=== PATIENT | female | born 2000 | race African-American/Black ===

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

== ENCOUNTER 2018-12-02 21:17 | Emergency (ER) | payer BC ==
[~2018-12-02] VITALS: Ht 162.6 cm; Wt 46.7 kg
--- NOTE | 2018-12-02 21:55 | NUR ---
BIB MOTHER FROM HOME. AAOX4. CRYING. NO SOB, BREATHING EVEN AND UNLABORED. AMBULATORY. C/O NAUSEA AND VOMITNG SINCE THIS MORNING. CANT HOLD FOOD OR FLUID DOWN. PT ALSO REPORTS DIARRHEA. SHE IS ALSO ON HER MENSTRATION. PT ALSO COMPLAINS OF GEN ABDOMINAL PAIN 10/10, CRAMPING, ACHING AND SHARP. TO ER BED 11. AT BEDSIDE
[2018-12-02] MEDS ORDERED: ONDANSETRON HCL/PF 4 MG/2 ML VIAL ONE (21:58)
[2018-12-02] MEDS ORDERED: KETOROLAC TROMETHAMINE INJ 60 MG/2 ML VIAL IM ONE (21:58)
[2018-12-02] MEDS ORDERED: IV NS 0.9% 1,000 ML BAG IV ONE (22:00)
[2018-12-02] MEDS ORDERED: KETOROLAC TROMETHAMINE INJ 30 MG/ML VIAL IV ONE (22:00)
[2018-12-02] MEDS ORDERED: ONDANSETRON HCL/PF 4 MG/2 ML VIAL IVP ONE (22:00)
--- NOTE | 2018-12-02 22:00 | NUR ---
IV STARTED ON R AC 20G. BLOOD DRAWN AND GIVEN TO MEMORIAL COUNSELOR AT BEDSIDE
[2018-12-02 22:01] LABS: BASOPHILS % (AUTO) 0.3 % (0.0-2.0); EOSINOPHILS % (AUTO) 0.2 % (0.0-6.0); HEMATOCRIT 39 % (33-45); HEMOGLOBIN 12.6 g/dL (11.5-14.8); LYMPHOCYTES % (AUTO) 14.1 % (20.0-44.0); MEAN CORPUSCULAR HGB CONC 32 g/dl (31.0-36.0); MEAN CORPUSCULAR VOLUME 82 fL (82-100); MONOCYTES % (AUTO) 5.7 % (2.0-12.0); NEUTROPHILS % (AUTO) 79.7 % (43.0-81.0); PLATELET COUNT (AUTO) 201 /CMM (150-450); RED BLOOD CELL COUNT(AUTO) 4.73 MIL/uL (4.0-5.2); WHITE BLOOD COUNT (AUTO) 7.2 K/uL (4.3-11.0)
[2018-12-02 22:02] LABS: MONOCYTES # (AUTO) 0.4 /CMM (0.1-1.30); NEUTROPHILS # (AUTO) 5.8 /CMM (1.8-8.9)
--- NOTE | 2018-12-02 22:17 | NUR ---
URINE COLLECTED AND SENT TO LAB
[2018-12-02 22:21] LABS: APPEARANCE,URINE Clear (CLEAR); BILIRUBIN,URINE SMALL (NEGATIVE); BLOOD, URINE Large Ery/uL (NEGATIVE); COLOR,URINE Yellow (YELLOW); KETONES,URINE 80 (NEGATIVE); LEUKOCYTE ESTERASE ,URINE Trace (NEGATIVE); NITRITE, URINE Negative (NEGATIVE); PROTEIN,URINE 30 mg/dl (NEGATIVE); UGLUCOSE Negative (NEGATIVE)
[2018-12-02 22:57] LABS: ALBUMIN 4.4 g/dL (3.4-5.0); BILIRUBIN,TOTAL 0.6 mg/dL (0.2-1.0); CALCIUM, SERUM 9.6 mg/dL (8.5-10.1); CREATININE 1.1 mg/dL (0.6-1.3); POTASSIUM 3.9 mmol/L (3.5-5.1); TOTAL PROTEIN, SERUM 8.8 g/dL (6.4-8.2)
[2018-12-02 23:10] LABS: BILIRUBIN,DIRECT 0.2 mg/dL (0.0-0.2)
[2018-12-02 23:17] LABS: BACTERIA,URINE Few /HPF (None Seen); RBC,URINE 21-50 /HPF (0-2); SQUAMOUS EPITHELIAL CELL,UR Few /HPF (None Seen); WBC,URINE 0-2 /HPF (0-3)
[2018-12-02] MEDS ORDERED: HYDROCODONE/APAP 5/325MG 1 EACH TABLET ONE (23:40)
[2018-12-03] MEDS ORDERED: HYDROCODONE/APAP 5/325MG 1 EACH TABLET PO ONE
[2018-12-03 00:20] VITALS: BP 125/70
== END 2018-12-03 00:30 | disposition home or self-care (01) ==
LOC: ER 21:23
DX: N94.6 Dysmenorrhea, unspecified (principal); R11.2 Nausea with vomiting, unspecified; F41.9 Anxiety disorder, unspecified
CPT/HCPCS: 36415; 80048; 80076; 81001; 84703; 85025; 87086; 96361; 96374; 96375; 99283; J1885; J2405; J7030; 81000-TC

== ENCOUNTER 2018-12-17 21:57 | Emergency (ER) | payer BC, MEDICAID ==
[~2018-12-17] VITALS: Ht 162.6 cm; Wt 46.7 kg
[2018-12-17 22:13] VITALS: BP 104/61
[2018-12-17] MEDS ORDERED: AMOX/CLAVULANATE 875 MG TABLET ONE (22:40)
[2018-12-17] MEDS ORDERED: TDAP [DIPH/PERTUSSIS/TET] 0.5 ML VIAL IM ONE ×2 (22:48→23:00)
[2018-12-17] MEDS ORDERED: AMOX/CLAVULANATE 875 MG TABLET PO ONE (23:00)
== END 2018-12-17 22:59 | disposition home or self-care (01) ==
LOC: ER 21:57
DX: S71.052A Open bite, left hip, initial encounter (principal); S31.154A Open bite of abdominal wall, left lower quadrant without penetration into peritoneal cavity, initial encounter; F41.9 Anxiety disorder, unspecified; W54.0XXA Bitten by dog, initial encounter; Y93.89 Activity, other specified; Y92.89 Other specified places as the place of occurrence of the external cause; Y99.8 Other external cause status
CPT/HCPCS: 90715

== ENCOUNTER → 2019-02-18 | Emergency (ER) | payer MEDICAID ==
[~2019-02-18] VITALS: Ht 162.6 cm; Wt 47.2 kg
[~2019-02-18] MED LIST changes: +CYCLOBENZAPRINE 10 MG TABLET ONE; +CYCLOBENZAPRINE 10 MG TABLET PO ONE; -IBUPROFEN 400 MG TABLET ONE; -IBUPROFEN 400 MG TABLET PO ONE; +KETOROLAC TROMETHAMINE INJ 30 MG/ML VIAL ONE; +KETOROLAC TROMETHAMINE INJ 60 MG/2 ML VIAL IM ONE
[2019-02-18 14:16] VITALS: BP 101/67
== END | disposition home or self-care (01) ==
LOC: ER 13:52
DX: M62.830 Muscle spasm of back (principal); F41.9 Anxiety disorder, unspecified
CPT/HCPCS: 36415; 84702; 96372; 99283; J1885

== ENCOUNTER 2019-03-05 07:36 | Emergency (ER) | payer MEDICAID ==
[~2019-03-05] VITALS: Ht 162.6 cm; Wt 48.1 kg
[2019-03-05 07:44] VITALS: BP 109/73
[2019-03-05] MEDS ORDERED: IBUPROFEN 600 MG TABLET PO ONE ×2 (08:25→08:30)
[2019-03-05 08:59] LABS: ABG BASE EXCESS -4.5 mmol/L; ABG OXYGEN SATURATION 32.6 % (92.0-98.5); ABG PCO2 57.4 mmHg (35.0-45.0); ABG PH 7.235 (7.350-7.450); ABG PO2 21.7 mmHg (75.0-100.0); COHb 0.5 % (0.5-1.5); MetHb 0.9 % (0.0-1.5); O2Hb 32.1 % (94.0-97.0); VENT MODE, BG ROOM AIR
--- NOTE | 2019-03-05 09:12 | NUR ---
Urine collected and sent to lab
--- NOTE | 2019-03-05 10:19 | NUR ---
Patient discharged to home in stable condition. Written and verbal after care instructions given. Patient verbalizes understanding of instruction.
== END 2019-03-05 10:19 | disposition home or self-care (01) ==
LOC: ER 07:36
DX: J02.8 Acute pharyngitis due to other specified organisms (principal); B97.89 Other viral agents as the cause of diseases classified elsewhere; B95.0 Streptococcus, group A, as the cause of diseases classified elsewhere; F41.9 Anxiety disorder, unspecified; R59.1 Generalized enlarged lymph nodes
CPT/HCPCS: 36600; 82803-TC; 84703-TC; 86403-TC; 87070-TC

== ENCOUNTER 2020-07-17 17:24 | Emergency (ER) | payer MEDICAID ==
[~2020-07-17] VITALS: Ht 165.1 cm; Wt 51.3 kg
[2020-07-17 17:31] VITALS: BP 134/81
[2020-07-17] MEDS ORDERED: ERYT3.5O9 EACHEYE (17:45)
[2020-07-17] MEDS ORDERED: DIPH25TA25 PO (17:51)
== END 2020-07-17 18:03 | disposition home or self-care (01) ==
LOC: ER 17:28
DX: H10.9 Unspecified conjunctivitis (principal); F41.9 Anxiety disorder, unspecified; Z79.899 Other long term (current) drug therapy

== ENCOUNTER 2022-12-30 21:52 | Emergency (ER) | payer MEDICAID ==
[~2022-12-30] VITALS: Ht 162.6 cm; Wt 46.3 kg
[~2022-12-30 21:52] MED LIST changes: -CYCLOBENZAPRINE 10 MG TABLET ONE; -CYCLOBENZAPRINE 10 MG TABLET PO ONE; +DIPH25TA25 PO; +ERYT3.5O9 EACHEYE; -KETOROLAC TROMETHAMINE INJ 30 MG/ML VIAL ONE; -KETOROLAC TROMETHAMINE INJ 60 MG/2 ML VIAL IM ONE
[2022-12-30 23:17] VITALS: BP 117/84; TEMP 98.8; O2SAT 99
[2022-12-30] MEDS ORDERED: NAPR-1009 PO (23:23)
[2022-12-30] MEDS ORDERED: ERYT3.5O9 EACHEYE (23:23)
== END 2022-12-30 23:26 | disposition home or self-care (01) ==
LOC: ER 21:55
DX: H10.9 Unspecified conjunctivitis (principal); F41.9 Anxiety disorder, unspecified

== ENCOUNTER 2023-01-06 23:31 | Emergency (ER) | payer MEDICAID ==
[~2023-01-06] VITALS: Ht 162.6 cm; Wt 46.3 kg
[~2023-01-06 23:31] MED LIST changes: +NAPR-1009 PO
[2023-01-07] MEDS ORDERED: IBUPROFEN 400 MG TABLET ONE (00:57)
[2023-01-07] MEDS ORDERED: IBUPROFEN 400 MG TABLET PO ONE (01:00)
[2023-01-07 01:46] VITALS: BP 100/65; TEMP 98; O2SAT 98
== END 2023-01-07 01:46 | disposition home or self-care (01) ==
LOC: ER 23:40
DX: S39.012A Strain of muscle, fascia and tendon of lower back, initial encounter (principal); S70.02XA Contusion of left hip, initial encounter; S70.01XA Contusion of right hip, initial encounter; F41.9 Anxiety disorder, unspecified; V89.2XXA Person injured in unspecified motor-vehicle accident, traffic, initial encounter; Y93.89 Activity, other specified; Y92.89 Other specified places as the place of occurrence of the external cause; Y99.8 Other external cause status
CPT/HCPCS: 72131-TC; 72170-TC

== ENCOUNTER 2024-08-09 00:19 | Emergency (ER) | payer MEDICAID ==
[~2024-08-09] VITALS: Ht 162.6 cm; Wt 49.4 kg
[2024-08-09] MEDS ORDERED: ACETAMINOPHEN 325 MG TABLET ONE (01:07)
[2024-08-09] MEDS ORDERED: LIDOCAINE 5% (PATCH) 1 EA PATCH TP ONE (01:07)
[2024-08-09] MEDS: LIDOCAINE 5% (PATCH) 1 EA PATCH TP ONE (01:12)
[2024-08-09] MEDS: ACETAMINOPHEN 325 MG TABLET PO ONE (01:12)
[2024-08-09 03:27] LABS: PREGNANCY TEST URINE QUAL NEGATIVE (NEGATIVE)
[2024-08-09] MEDS ORDERED: METH-649 PO (03:37)
[2024-08-09 03:47] VITALS: BP 120/87; TEMP 98; O2SAT 95
== END 2024-08-09 03:47 | disposition home or self-care (01) ==
LOC: ER 00:24
DX: M25.511 Pain in right shoulder (principal); Z79.899 Other long term (current) drug therapy
CPT/HCPCS: 73030-TC; 84703-TC

== ENCOUNTER 2024-09-14 20:30 | Emergency (ER) | payer MEDICAID ==
[~2024-09-14] VITALS: Ht 162.6 cm; Wt 49.4 kg
[~2024-09-14 20:30] MED LIST changes: +METH-649 PO
[2024-09-14] MEDS ORDERED: EPINEPHRINE (1:1000) 1 MG/ML AMPUL ONE (20:37)
[2024-09-14] MEDS ORDERED: methylPREDNISolone SOD SUCC 125 MG/2ML VIAL ONE (20:38)
[2024-09-14] MEDS ORDERED: FAMOTIDINE/PF INJ 20 MG/2 ML VIAL IV ONE (20:38)
[2024-09-14] MEDS ORDERED: diphenhydrAMINE HCL 50 MG/ML VIAL ONE (20:38)
[2024-09-14] MEDS: FAMOTIDINE/PF INJ 20 MG/2 ML VIAL IV ONE (20:45)
[2024-09-14] MEDS: diphenhydrAMINE HCL 50 MG/ML VIAL IV ONE (20:45)
[2024-09-14] MEDS: IV NS 0.9% 1,000 ML BAG IV ONE (20:45)
[2024-09-14] MEDS: EPINEPHRINE (1:1000) 1 MG/ML AMPUL SUBCUT ONE (20:45)
[2024-09-14] MEDS: methylPREDNISolone SOD SUCC 125 MG/2ML VIAL IV ONE (20:45)
[2024-09-14] MEDS ORDERED: ALBUTEROL FS 2.5 MG/3 ML VIAL.NEB ONE (20:59)
[2024-09-14 21:05] VITALS: O2SAT 100
[2024-09-14] MEDS: ALBUTEROL FS 2.5 MG/3 ML VIAL.NEB CONTNEB ONE (21:05)
[2024-09-14] MEDS ORDERED: PRED20TA PO (21:12)
[2024-09-14] MEDS ORDERED: FAMO-131 PO (21:12)
[2024-09-14] MEDS ORDERED: EPIN0.3P3 IM (21:12)
[2024-09-14] MEDS ORDERED: DIPH25CA83 PO (21:12)
[2024-09-14 22:04] VITALS: O2SAT 100
[2024-09-14 22:43] VITALS: BP 96/65; TEMP 98.5; O2SAT 100
== END 2024-09-14 22:44 | disposition home or self-care (01) ==
LOC: EDUNIT# 20:30 → ER 20:34
DX: T78.49XA Other allergy, initial encounter (principal); L50.9 Urticaria, unspecified; Z79.52 Long term (current) use of systemic steroids; X58.XXXA Exposure to other specified factors, initial encounter
CPT/HCPCS: 99285; 96372; 96374; 96361; 96375; 94644; J1200; J0171; J1308; J2919